=== PATIENT | male | born 1995 | race Caucasian/White ===

== ENCOUNTER 2017-01-05 17:19 | Emergency (ER) | payer OTHER ==
[2017-01-05] MEDS ORDERED: KETOROLAC TROMETHAMINE 60 MG/2 ML VIAL IM ONE ×2 (18:11→18:20)
[2017-01-05] MEDS ORDERED: DIAZEPAM 5 MG/ML SYRG IM ONE (18:11)
--- OUTSIDE RECORDS SUMMARY | 2017-01-05 18:15 | XMS REPORT | Continuity of Care Document ---
:1995 Author Organization [facility] ([facility]) Address [address] [place] [address] Phone [phone] Care Team Providers Name Role Phone Jcarlos Fortune Primary Care Provider [phone] Source Comments This disclosure is being made pursuant to the Care Everywhere program, applicable federal and state laws, and may not contain all informaitonavailable regarding this patient.[facility] ([facility]) Active Allergies and Adverse Reactions No Active Allergies Current Medications Not on file Active Problems Problem Noted Date Acute osteomyelitis, site unspecified 11/15/2008 Social History Tobacco Use Types Packs/Day Years Used Date Never Assessed Last Filed Vital Signs Vital Sign Reading Time Taken Blood Pressure - - Pulse 94 11/15/2008 12:11 PM [facility] Temperature 36.6 C (97.88 F) 11/15/2008 12:11 PM [facility] Respiratory Rate 20 11/15/2008 12:11 PM [facility] Height 1.379 m (4' 6.29") 11/15/2008 12:11 PM [facility] Weight 30.396 kg (67 lb 0.2 oz) 11/15/2008 12:11 PM [facility] Body Mass Index 15.98 11/15/2008 12:11 PM [facility] Oxygen Saturation - - Plan of Care Health Maintenance Due Date Last Done Comments Hepatitis B Vaccine (1 of 3 - Primary Series) 1997 HPV Vaccine (1 of 3 - Male 3 Dose Series) 2008 Tdap Vaccine 2008 Meningococcal Vaccine (1 of 1) 2013 Lipid Disorder Screening 2015 MMR Vaccine 2015 Td Vaccine 2015 Varicella Vaccine (1 of 2 - Adult - No Evidence of 2015 Immunity) Influenza Vaccine: Seasonal (#1) 06/09/2016 Results from Last 3 Months Not on file
[2017-01-05] MEDS ORDERED: DIAZEPAM 5 MG/ML SYRG ONE (18:20)
--- NOTE | 2017-01-05 18:34 | ERNOTE ---
Upper Extremity HPI - Narrative Date of Service: 01/05/17 - General Extremities Pain Location: other: left - scapula Time Seen by Provider: 01/05/17 18:02 Source: patient, RN notes reviewed Exam Limitations: no limitations - Immun/Allergies/Home Medications Immunizations: IMMUNIZATION HX Immunizations Up to Date Yes History of Influenza Vaccine Yes Hx Pneumococcal Vaccination No Allergies/Adverse Reactions: Allergies Allergy/AdvReac Type Severity Reaction Status Date / Time No Known Allergies Allergy Verified 01/05/17 17:25 Home Medications: HOME MEDICATIONS Cyclobenzaprine HCl [Flexeril] 10 mg PO TID PRN #30 tab 01/05/17 [Last Taken Unknown] Ibuprofen [Motrin] 600 mg PO Q6H PRN #40 tab 01/05/17 [Last Taken Unknown] - History of Present Illness Narrative: 21 y/o male to ED for pain in his left scapular region that began while he was running earlier this afternoon. He has not taken anything for pain. He runs regularly. Occurred: this afternoon Method of Injury: Reports: no apparent injury Modifying Factors - (Improves): Reports: rest Modifying Factors - (Worsens): Reports: movement, other - deep breathing Associated Symptoms: Denies: tingling, weakness, numbness distally, loss of power (lt arm) Other Injuries: Reports: none Prior Treament: Denies: similar symptoms before Review of Systems - Review of Systems Constitutional: Absent: fever, chills EYE: Present: no symptoms reported ENT: Present: no symptoms reported Respiratory: Absent: shortness of breath, cough Cardiology: Absent: chest pain, syncope Gastrointestinal/Abdominal: Absent: nausea, vomiting, abdominal pain Genitourinary: Present: no symptoms reported Musculoskeletal: Present: muscle pain. Absent: joint pain Skin: Absent: lesions, lumps, change in color Neurological: Absent: headache, dizziness/light-headedness, weakness, numbness, tingling Endocrine: Present: no symptoms reported Hematologic/Lymphatic: Present: no symptoms reported Psych: Present: no symptoms reported - Patient's Past Medical History Patient History - Medical: GERD, Other Patient History - Cardiac/Respiratory: No pertinent hx Patient History - Cancer: No Hx of Cancer Patient History - Surgical Procedures: Ear Tubes, T & A, Other Patient History - Other: None - Social History Living Situations: home Abuse History: No History of abuse Psych History: Hx of Anxiety Does anyone smoke in the home?: No Smoking Status: Never smoker Alcohol Use: none Drug Use: none - Immunizations Immunizations Up to Date: Yes Hx Pneumococcal Vaccination: No History of Influenza Vaccine: Yes Physical Exam - Physical Exam General Appearance: Present: wd/wn, alert, no apparent distress, thin Neck: Present: normal inspection, nontender, supple, full range of motion Respiratory: Present: no respiratory distress, normal breath sounds, no accessory muscle use, chest nontender, lungs clear Cardiovascular/Chest: Present: regular rate, rhythm, no murmur, normal peripheral pulses Back Exam: Present: no CVA tenderness, no vertebral tenderness, muscle spasm - near left scapula Extremity Exam: Present: normal inspection, non-tender, no edema, decreased range of motion - left arm - causes pain in scapular region Neurological Exam: Present: alert, oriented, normal mood/affect, no motor/ sensory deficits Skin Exam: Present: normal color, warm/dry ED Progress - Vital Signs Patient's Vital Signs:: I have reviewed the patient's vital signs. Vital Signs: Vital Signs 01/05/17 17:21 Temperature 36.4 C L Pulse Rate 115 H Respiratory 12 Rate Blood Pressure 121/78 O2 Sat by Pulse 96 Oximetry - Progress/Reassessment Chief Complaint: Upper Extremity Injury/Problem Progress:: Improved Departure Clinical Impression: Muscle strain of left scapular region Qualifiers: Encounter type: initial encounter Qualified Code(s): S46.912A - Strain of unspecified muscle, fascia and tendon at shoulder and upper arm level, left arm , initial encounter - Departure Disposition: Home self-care Condition: Good Instructions: Muscle Strain, [id number] Additional Instructions: Ice or heat to sore area Avoid strenuous activity for now Flexeril (muscle relaxant) will cause drowsiness Prescriptions: Cyclobenzaprine HCl [Flexeril] 10 mg PO TID PRN #30 tab PRN Reason: MUSCLE SPASMS Ibuprofen [Motrin] 600 mg PO Q6H PRN #40 tab PRN Reason: Pain
[2017-01-05 18:40] VITALS: BP 118/62
== END 2017-01-05 18:39 | disposition home or self-care (01) ==
LOC: ER 17:19
DX: S46.912A Strain of unspecified muscle, fascia and tendon at shoulder and upper arm level, left arm, initial encounter (principal)